=== PATIENT | male | born 1980 | race Caucasian/White ===

== ENCOUNTER 2021-09-01 13:50 | Emergency (ER) | payer MEDICARE, MEDICAID ==
[~2021-09-01] VITALS: Ht 177.8 cm; Wt 72.6 kg
[2021-09-01 13:50] VITALS: BP 129/93
[2021-09-01] MEDS ORDERED: DOXYCYCLINE 100 MG (VIBRAMYCIN) TABLET PO STA (14:18)
--- NOTE | 2021-09-01 14:18 | ED General ---
General Chief Complaint: Bite-Animal/Human/Insect Stated Complaint: HEADACHE; SWOLLEN LYMPH NODES; TICK BITE Source of Information: Patient Exam Limitations: No Limitations History of Present Illness Date Seen by Provider: Sep 01, 2021 Time Seen by Provider: 13:50 Initial Comments 41-year-old male with no pertinent past medical history coming in due to concern for multiple tick bites. He says he is outside frequently, has pulled out multiple ticks that have been on him for multiple days in a row. He says he has been having chills, lymph node swelling, sore throat, and this been going on for quite a while. He thinks he is possible he is lost some weight, but he is unsure. He does not really have a primary doctor, he sees a psychiatrist up in [place]. Denies any chest pain, shortness of breath, abdominal pain, nausea with vomiting, diarrhea, focal weakness or numbness, or any other concerns. He specifically wants tickborne illness testing. When asked about any target type rash, he says he believes he saw 1 at 1 point. Of note, he says he has had swollen lymph nodes almost his entire life, and particularly the one in his right axilla 10 biopsied before and everything was fine. Allergies and Home Medications Allergies Coded Allergies: No Known Drug Allergies (Unverified , 09/01/21) Patient Home Medication List Home Medication List Reviewed: Yes Review of Systems Review of Systems Constitutional: chills; No fever EENTM: No blurred vision Respiratory: no symptoms reported Cardiovascular: no symptoms reported Gastrointestinal: no symptoms reported Genitourinary: no symptoms reported Musculoskeletal: muscle stiffness Skin: rash, other (bug bites) Psychiatric/Neurological: No Symptoms Reported Hematologic/Lymphatic: No Symptoms Reported Immunological/Allergic: no symptoms reported All Other Systems Reviewed Negative Unless Noted: Yes Past Vwgjrgv-Dqhqyu-Qtghvu Hx Patient Social History Tobacco Use?: Yes Past Medical History Surgeries: No Physical Exam Vital Signs Vital Signs - First Documented 09/01/21 13:50 Temp 37.1 Pulse 99 Resp 16 B/P (MAP) 129/93 (105) Pulse Ox 97 O2 Delivery Room Air Capillary Refill : Height, Weight, BMI Height: '" Weight: lbs. oz. kg; BMI Method: General Appearance: No Apparent Distress, WD/WN Eyes: Bilateral Eye Normal Inspection HEENT: PERRL/EOMI, Normal ENT Inspection, Pharynx Normal Neck: Full Range of Motion, Normal Inspection, Supple, Lymphadenopathy (R) Respiratory: Chest Non Tender, Lungs Clear, Normal Breath Sounds, No Accessory Muscle Use, No Respiratory Distress Cardiovascular: Regular Rate, Rhythm, No Edema, Normal Peripheral Pulses Gastrointestinal: Normal Bowel Sounds, Non Tender, Soft; No Distended, No Guarding Back: Normal Inspection, No CVA Tenderness, No Vertebral Tenderness Extremity: Normal Capillary Refill, Normal Inspection, Normal Range of Motion, Non Tender, No Calf Tenderness, No Pedal Edema, Other (lymph node in axila on the right and right groin) Neurologic/Psychiatric: Alert, No Motor/Sensory Deficits, Normal Mood/Affect Skin: Normal Color, Warm/Dry Lymphatic: No Adenopathy Progress/Results/Core Measures Suspected Sepsis SIRS Temperature: Pulse: Respiratory Rate: Laboratory Tests 09/01/21 14:28: White Blood Count 6.5 Blood Pressure / Mean: Laboratory Tests 09/01/21 14:28: Platelet Count 200 Results/Orders Lab Results Laboratory Tests Test 09/01/21 14:28 Range/Units White Blood Count 6.5 4.3-11.0 10^3/uL Red Blood Count 4.19 L 4.30-5.52 10^6/uL Hemoglobin 13.1 L 13.3-17.7 g/dL Hematocrit 37 L 40-54 % Mean Corpuscular Volume 89 80-99 fL Mean Corpuscular Hemoglobin 31 25-34 pg Mean Corpuscular Hemoglobin Concent 35 32-36 g/dL Red Cell Distribution Width 13.0 10.0-14.5 % Platelet Count 200 130-400 10^3/uL Mean Platelet Volume 9.8 9.0-12.2 fL Immature Granulocyte % (Auto) 0 % Neutrophils (%) (Auto) 38 L 42-75 % Lymphocytes (%) (Auto) 48 H 12-44 % Monocytes (%) (Auto) 10 0-12 % Eosinophils (%) (Auto) 3 0-10 % Basophils (%) (Auto) 1 0-10 % Neutrophils # (Auto) 2.5 1.8-7.8 10^3/uL Lymphocytes # (Auto) 3.1 1.0-4.0 10^3/uL Monocytes # (Auto) 0.7 0.0-1.0 10^3/uL Eosinophils # (Auto) 0.2 0.0-0.3 10^3/uL Basophils # (Auto) 0.1 0.0-0.1 10^3/uL Immature Granulocyte # (Auto) 0.0 0.0-0.1 10^3/uL My Orders Orders - VIANEY LOYOLA MD Tick Panel With Lyme Eia (09/01/21 14:18) Doxycycline Hyclate Tablet (Vibramycin T (09/01/21 14:18) Cbc With Automated Diff (09/01/21 14:18) Chest Pa/Lat (2 View) (09/01/21 14:18) Vital Signs/I&O 09/01/21 13:50 Temp 37.1 Pulse 99 Resp 16 B/P (MAP) 129/93 (105) Pulse Ox 97 O2 Delivery Room Air Capillary Refill : Progress Note : Progress Note Presented for sore throat, lymph node swelling, multiple tick bites. ABCs were intact and vitals were stable on presentation. Physical exam with swollen lymph nodes, he says a lot of them are chronic. Chest x-ray without acute abnormalities. CBC with no obvious leukemia. Given the multiple tick bites and he mentions something similar to a target rash, we will treat him empirically with doxycycline. All tickborne illness lab panel sent. He was then discharged home in stable condition with strict return precautions. Given information on h ow to follow-up with [facility] as primary care Diagnostic Imaging Diagonstic Imaging: Xray Plain Films/CT/US/NM/MRI: chest Comments [facility] [place], [place] NAME: JOE PALACIO [facility] REC#: [id number] PT STATUS: REG ER : 1980 PHYSICIAN: VIANEY LOYOLA MD ADMIT DATE: 09/01/21/ER FS Draft Date of Exam:09/01/21 CHEST PA/LAT (2 VIEW) INDICATION: Multiple swollen lymph nodes and weight loss. COMPARISON: None. FINDINGS: Frontal and lateral views of the chest demonstrate normal heart size and pulmonary vascularity. The lungs are clear. There are no signs of infiltrate, pleural effusions or pneumothoraces. The visualized osseous structures show no acute abnormalities. IMPRESSION: 1. No acute process. No signs of infiltrates, effusions or pneumothoraces. Dictated on workstation # [id number] Dict: 09/01/21 1428 Trans: 09/01/21 1429 [id number] Interpreted by: GILES BOOGIE MD Electronically signed by: Departure Impression Primary Impression: Tick bites Qualified Codes: S20.461A - Insect bite (nonvenomous) of right back wall of thorax, initial encounter; W57.XXXA - Bitten or stung by nonvenomous insect and other nonvenomous arthropods, initial encounter Disposition: HOME, SELF-CARE Condition: Stable Departure-Patient Inst. Decision time for Depature: 14:43 Referrals: [facility]/Gay PIMENTEL,LOCAL PHYSICIAN (PCP) Primary Care Physician Patient Instructions: Insect Bites and Stings ED Add. Discharge Instructions: Recent labs were all the tickborne illnesses. Based on your blood work it does not appear like you have an obvious parasitic infection. You will be on antibiotics called doxycycline for the next 10 days which treats all tickborne illnesses. Someone should call if it is positive within the next several days. Call [facility] at the number listed in this paperwork to schedule an appointment for primary care. Scripts Doxycycline Hyclate (Doxycycline Hyclate) 100 Mg Tablet 100 MG PO BID for 10 Days, #20 TAB 0 Refills Prov: VIANEY LOYOLA MD 09/01/21 Work/School Note: Work Release Form Date Seen in the Emergency Department: Sep 01, 2021 Return to Work: Sep 02, 2021 Restrictions: No Restrictions VIANEY LOYOLA MD Sep 01, 2021 14:18
--- NOTE | 2021-09-01 14:29 | Diagnostic Imaging Report ---
INDICATION: Multiple swollen lymph nodes and weight loss. COMPARISON: None. FINDINGS: Frontal and lateral views of the chest demonstrate normal heart size and pulmonary vascularity. The lungs are clear. There are no signs of infiltrate, pleural effusions or pneumothoraces. The visualized osseous structures show no acute abnormalities. IMPRESSION: 1. No acute process. No signs of infiltrates, effusions or pneumothoraces. Dictated by: Dictated on workstation # [id number]
[2021-09-01 14:32] LABS: BASOPHILS # (AUTO) 0.1 10^3/uL (0.0-0.1); BASOPHILS % (AUTO) 1 % (0-10); EOSINOPHILS # (AUTO) 0.2 10^3/uL (0.0-0.3); EOSINOPHILS % (AUTO) 3 % (0-10); HEMATOCRIT 37 % (40-54); HEMOGLOBIN 13.1 g/dL (13.3-17.7); LYMPHOCYTES # (AUTO) 3.1 10^3/uL (1.0-4.0); LYMPHOCYTES % (AUTO) 48 % (12-44); MEAN CORPUSCULAR HEMOGLOBIN 31 pg (25-34); MEAN CORPUSCULAR HGB CONC 35 g/dL (32-36); MEAN CORPUSCULAR VOLUME 89 fL (80-99); MEAN PLATELET VOLUME 9.8 fL (9.0-12.2); MONOCYTES # (AUTO) 0.7 10^3/uL (0.0-1.0); MONOCYTES % (AUTO) 10 % (0-12); NEUTROPHILS # (AUTO) 2.5 10^3/uL (1.8-7.8); NEUTROPHILS % (AUTO) 38 % (42-75); PLATELET COUNT 200 10^3/uL (130-400); WHITE BLOOD COUNT 6.5 10^3/uL (4.3-11.0)
[2021-09-01] MEDS ORDERED: DOXY100T2 PO (14:45)
[2021-09-01 15:16] LABS: SMEAR SCAN COMMENT OK
== END 2021-09-01 14:55 | disposition home or self-care (01) ==
LOC: ER FS 13:52
DX: S20.461A Insect bite (nonvenomous) of right back wall of thorax, initial encounter (principal); W57.XXXA Bitten or stung by nonvenomous insect and other nonvenomous arthropods, initial encounter
CPT/HCPCS: 36415; 71046; 85025; 86618; 86666; 86668; 86757

== ENCOUNTER 2021-11-07 18:24 | Emergency (ER) | payer MEDICARE, MEDICAID ==
[~2021-11-07] VITALS: Ht 177.8 cm; Wt 66.4 kg
[~2021-11-07 18:24] MED LIST: DOXY100T2 PO
[2021-11-07] MEDS ORDERED: DOXY100T2 PO (18:49)
--- NOTE | 2021-11-07 18:49 | ED Upper Extremity ---
General Chief Complaint: Upper Extremity Stated Complaint: L ELBOW PAIN Source: patient Exam Limitations: no limitations History of Present Illness Date Seen by Provider: Nov 07, 2021 Time Seen by Provider: 18:26 Initial Comments 41-year-old male with no pertinent past medical history coming in due to left elbow pain. Is been going on a couple days, not on the lateral side of his left elbow, worse with any type of activity. Better with rest and ibuprofen. 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 Denies any trauma to it. He is otherwise denying any other acute complaints. Allergies and Home Medications Allergies Coded Allergies: No Known Drug Allergies (Unverified , 09/01/21) Patient Home Medication List Home Medication List Reviewed: Yes Doxycycline Hyclate (Doxycycline Hyclate) 100 Mg Tablet, 100 MG PO BID Prescribed by: VIANEY LOYOLA on 09/01/21 2785 Review of Systems Constitutional: No fever EENTM: No blurred vision Respiratory: No cough Cardiovascular: No chest pain Gastrointestinal: No abdominal pain Genitourinary: no symptoms reported Musculoskeletal: joint pain Skin: no symptoms reported Psychiatric/Neurological: No Symptoms Reported All Other Systems Reviewed Negative Unless Noted: Yes Past Ujjumpv-Rftabd-Oicoqq Hx Patient Social History Tobacco Use?: Yes Tobacco type used: Cigarettes Substance use?: Yes Substance type: Marijuana Past Medical History Surgeries: Yes Orthopedic Physical Exam Vital Signs Capillary Refill : Height, Weight, BMI Height: '" Weight: lbs. oz. kg; 22.00 BMI Method: General Appearance: WD/WN, no apparent distress HEENT: PERRL/EOMI, normal ENT inspection, pharynx normal Neck: non-tender, full range of motion, supple, normal inspection Cardiovascular: regular rate, rhythm, no edema, no murmur Respiratory: chest non-tender, lungs clear, normal breath sounds, no respiratory distress, no accessory muscle use Gastrointestinal: normal bowel sounds, non tender, soft; No distended, No guarding, No rebound Back: normal inspection Shoulder: normal inspection, non-tender, no evidence of injury, normal ROM Elbow/Forearm: normal inspection, no evidence of injury, normal ROM, bone tenderness (Along the lateral epicondyle of the left elbow) Wrist: Yes normal inspection, Yes non-tender, Yes no evidence of injury, Yes normal ROM Neurologic/Tendon: normal sensation, normal motor functions Neurologic/Psychiatric: no motor/sensory deficits, alert, normal mood/affect Skin: normal color, warm/dry Lymphatic: no adenopathy Progress/Results/Core Measures Results/Orders My Orders Orders - VIANEY LOYOLA MD Elbow 3 View Left (11/07/21 18:38) Progress Progress Note : Progress Note 41-year-old male with above history coming in due to left elbow pain. ABCs were intact and vitals were stable on presentation. Physical exam significant for lateral epicondyle pain and given his overuse this is consistent with lateral epicondylitis. Of note, the patient was seen a couple months ago and diagnosed with Ehrlichia, the labs were not back at the time and he was sent home on 10 days of doxycycline. He still having some vague symptoms, and does have follow- up with his PCP in 2 days. I will start him on a course of doxycycline in case the infection was not eradicated. X-ray of his elbow negative for any fracture or dislocation. I will have him follow-up with orthopedics as an outpatient. I believe he is stable for discharge with outpatient follow-up. He was sent with strict return precautions Departure Impression Primary Impression: Lateral epicondylitis of left elbow Disposition: HOME, SELF-CARE Condition: Stable Departure-Patient Inst. Decision time for Depature: 18:48 Referrals: GERARD CARTWRIGHT,LOCAL PHYSICIAN (PCP) Primary Care Physician Patient Instructions: Lateral Epicondylitis Add. Discharge Instructions: I recommend buying a tennis elbow strap from [employer] or if you can find at any pharmacy. Take ibuprofen for pain and/or Tylenol. I recommend icing it and resting it. Follow-up with Kyle Cartwright who is an orthopedist here in town if things are not improving. Scripts Doxycycline Hyclate (Doxycycline Hyclate) 100 Mg Tablet 100 MG PO BID for 14 Days, #28 TAB 0 Refills Prov: VIANEY LOYOLA MD 11/07/21 Work/School Note: Work Release Form Date Seen in the Emergency Department: Nov 07, 2021 Return to Work: Nov 08, 2021 Restrictions: No Restrictions VIANEY LOYOLA MD Nov 07, 2021 18:49
[2021-11-07 18:57] VITALS: BP 129/81
--- NOTE | 2021-11-07 19:00 | Diagnostic Imaging Report ---
EXAMINATION: Left elbow, three or more views. HISTORY: Lateral epicondyle pain. COMPARISON: None available. FINDINGS: Alignment is normal. No fracture is seen. Joint spaces are normal. IMPRESSION: 1. No fracture. Dictated by: Dictated on workstation # [id number]
== END 2021-11-07 18:57 | disposition home or self-care (01) ==
LOC: EDUNIT# 18:24 → ER FS 18:25
DX: M77.12 Lateral epicondylitis, left elbow (principal); Z28.310 Unvaccinated for COVID-19
CPT/HCPCS: 73080